=== PATIENT | female | born 1970 | race Caucasian/White ===

== ENCOUNTER → 2019-03-15 | Outpatient (CLI) | payer BC | LOC: MC.RAD 15:30 | DX: Z12.31 Encounter for screening mammogram for malignant neoplasm of breast (principal) ==

== ENCOUNTER 2023-12-16 06:48 | Day surgery (SDC) | payer BC ==
[~2023-12-16] VITALS: Ht 165.1 cm; Wt 86.4 kg
[~2023-12-16 06:48] MED LIST: LR 1,000 ML IV SCH; Ondansetron 4 MG/2 ML VIAL IV PRN
[2023-12-16 07:29] VITALS: BP 115/75; PULSE 76; TEMP 98.2
[2023-12-16] MEDS ORDERED: PROZAC40 MG PO (07:38)
[2023-12-16] MEDS ORDERED: WELLBUTRIN 100100 MG PO (07:39)
[2023-12-16] MEDS ORDERED: TOPAMAX50 MG PO (07:40)
[2023-12-16] MEDS ORDERED: ESTRACE 1MG1 MG/TAB PO (07:41)
[2023-12-16] MEDS ORDERED: DOXYCYCLINE 10100 MG PO (07:42)
[2023-12-16] MEDS ORDERED: ALDACTONE50 MG PO (07:43)
[2023-12-16] MEDS ORDERED: INDERAL60 MG PO (07:44)
[2023-12-16] MEDS ORDERED: MUCUS RELIEF1200 MG PO (07:44)
[2023-12-16] MEDS ORDERED: SUDAFED 12 HOU120 MG PO (07:45)
[2023-12-16 08:55] VITALS: BP 98/63; PULSE 64; TEMP 98
[2023-12-16 09:10] VITALS: BP 116/68; PULSE 62
[2023-12-16 09:25] VITALS: BP 117/64; PULSE 63
--- NOTE | 2023-12-16 17:37 | NUR ---
3424-3534: PT TO RECOVERY BAY 4 FROM ENDO S/P EGD WITH DILATION AND BIOPSIES A&O, PLACED ON MONITOR, VSS ON RA RECEIVED REPORT AND ASSUMED CARE OF PT FROM RN LIZ SON AT BEDSIDE PROVIDED FOOD/FLUIDS, TOLERATING WELL MD IN TO SEE PT/FAMILY POST-PROCEDURE PT HAS REMAINED A&O, NAD, VSS ON RA, TOLERATING PO, IS WITHOUT SIGNIFICANT COMPLAINT, WITH STEADY GAIT THRU OUT STAY IV D/C'D. D/C INSTRUCTIONS, ANY FOLLOW UP REVIEWED AND HANDED TO PT. ALL QUESTIONS AND CONCERNS ADDRESSED TO PT SATISFACTION. TAKEN TO EXIT VIA W/C WITH ALL BELONGINGS AND PAPERWORK IN HAND, ASSISTED INTO PASSENGER SEAT OF POV. SON TO DRIVE HOME.
== END 2023-12-16 09:30 | disposition home or self-care (01) ==
LOC: SDCO 06:48
DX: K22.2 Esophageal obstruction (principal); K44.9 Diaphragmatic hernia without obstruction or gangrene; K29.70 Gastritis, unspecified, without bleeding; K31.89 Other diseases of stomach and duodenum
CPT/HCPCS: C1726; J2704; J7120

== ENCOUNTER → 2024-06-04 | Outpatient (CLI) | payer BC ==
[~2024-06-04] MED LIST changes: +ALDACTONE50 MG PO; +DOXYCYCLINE 10100 MG PO; +ESTRACE 1MG1 MG/TAB PO; +INDERAL60 MG PO; -LR 1,000 ML IV SCH; +MUCUS RELIEF1200 MG PO; -Ondansetron 4 MG/2 ML VIAL IV PRN; +PROZAC40 MG PO; +SUDAFED 12 HOU120 MG PO; +TOPAMAX50 MG PO; +WELLBUTRIN 100100 MG PO
== END ==
LOC: MC.RAD 08:00
DX: Z12.31 Encounter for screening mammogram for malignant neoplasm of breast (principal)